=== PATIENT | male | born 1955 | race Caucasian/White ===

== ENCOUNTER 2017-06-15 15:38 | Emergency (ER) | payer BC ==
[2017-06-15] MEDS ORDERED: TETRACAINE HCL 150 DROP BTL ONE (15:48)
--- OUTSIDE RECORDS SUMMARY | 2017-06-15 15:54 | XMS REPORT | Clinical Summary ---
:1955 Author Organization [facility] [place] [address] Care Team Providers Name Role Phone Unavailable Primary Care Provider Unavailable Source Comments This disclosure is being made pursuant to the [employer] program and maynot contain all information available regarding this patient.[facility] Allergies Not on File Current Medications Be aware that medications may not be up to date as of this document. Alwaysverify current medications with the patient. Not on file Active Problems Not on file Social History Tobacco Use Types Packs/Day Years Used Date Never Assessed Sex Assigned at Date Recorded Not on file Last Filed Vital Signs Not on file Plan of Treatment Health Maintenance Due Date Last Done Comments Retired-Pertussis Vaccine Adult 1976 Retired-Tetanus Vaccine Adult 1974 Colonoscopy 2007 Well Adult Visit 2007 Retired-INFLUENZA VACCINE 07/04/2015 Results Not on filefrom Last 3 Months
--- NOTE | 2017-06-15 16:02 | ERNOTE ---
ENT HPI Date of Service: 06/15/17 Presenting Symptoms: eye pain Time Seen by Provider: 06/15/17 15:42 Source: patient Exam Limitations: no limitations - Immun/Allergies/Home Medications Immunizations: IMMUNIZATION HX Immunizations Up to Date Yes History of Influenza Vaccine No Hx Pneumococcal Vaccination No Allergies/Adverse Reactions: Allergies Allergy/AdvReac Type Severity Reaction Status Date / Time No Known Allergies Allergy Verified 06/15/17 15:45 Home Medications: HOME MEDICATIONS Aspirin [Aspirin EC] 81 mg PO DAILY 09/03/16 [Last Taken Unknown] Atorvastatin Calcium [Lipitor] 40 mg PO HS 09/03/16 [Last Taken Unknown] Metoprolol Succinate [Toprol Xl] 50 mg PO DAILY 09/03/16 [Last Taken Unknown] Nitroglycerin 0.4 mg SL DAILY PRN 09/03/16 [Last Taken Unknown] amLODIPine BESYLATE [Norvasc] 5 mg PO DAILY 09/03/16 [Last Taken Unknown] Tobramycin/Dexamethasone [Tobradex Eye Drops] 5 ml OP QID #2 drops.susp [Last Taken Unknown] traMADol HCL [Ultram] 50 mg PO QID #20 tablet 06/15/17 [Last Taken Unknown] - History of Present Illness Narrative: patient splashed chlorine from pool in left eye Severity: Present: moderate ENT Location: Present: eye (R) Prearrival Treatment: Present: flushing eys Modifying Factors - Improves: Reports: activity Modifying Factors - Worsens: Reports: activity Associated Symptoms - ENT: Reports: denies symptoms Review of Systems - Review of Systems Constitutional: Present: See HPI EYE: Present: eye pain, eye discharge ENT: Present: no symptoms reported Respiratory: Present: no symptoms reported Cardiology: Present: no symptoms reported Gastrointestinal/Abdominal: Present: no symptoms reported Genitourinary: Present: no symptoms reported Musculoskeletal: Present: no symptoms reported Skin: Present: no symptoms reported Neurological: Present: no symptoms reported Endocrine: Present: no symptoms reported Hematologic/Lymphatic: Present: no symptoms reported Psych: Present: no symptoms reported All Other Systems: All systems neg except as marked - Patient's Past Medical History Patient History - Medical: Chronic Pain, GERD, Osteoarthritis, Other Patient History - Cardiac/Respiratory: Hypertension, Hyperlipidemia Patient History - Cancer: No Hx of Cancer Patient History - Surgical Procedures: Back Surgery, Cholecystectomy, Cardiac stent, Other Patient History - Other: None - Family History Family History:: no untoward family reactions to anesthesia, no familial bleeding tendencies, no family history of premature - Social History Living Situations: spouse Abuse History: No History of abuse Psych History: No pertinent hx Does anyone smoke in the home?: No Smoking Status: Never smoker Have you smoked in the past 12 months: No Do you dip or chew tobacco: No Patient requests Smoking Cessation Consult: No Alcohol Use: none Drug Use: none - Immunizations Immunizations Up to Date: Yes Hx Pneumococcal Vaccination: No History of Influenza Vaccine: No Physical Exam - Physical Exam General Appearance: Present: alert, mild distress Head Exam: Present: normal inspection Eye Exam: Normal inspection: right - sclera injectedwithout drainage, PERRL: bilateral, EOMI: bilateral, Eyelid inflammation: right Ears, Nose, Throat: Present: normal ENT inspection Neck: Present: normal inspection, nontender Respiratory: Present: no respiratory distress, normal breath sounds, no accessory muscle use, chest nontender, lungs clear Cardiovascular/Chest: Present: regular rate, rhythm, no murmur, normal peripheral pulses Peripheral Pulses: N=norm/S=strong/W=weak/B=bound/A=absent: Carotid (R): Normal , Carotid (L): Normal, Radial (R): Normal, Radial (L): Normal, Femoral (R): Normal, Femoral (L): Normal, Dorsalis-pedis (R): Normal, Dorsalis-pedis (L): Normal Gastrointestinal/Abdominal: Present: normal bowel sounds, nontender, nondistended, soft Back Exam: Present: normal inspection, normal range of motion, no CVA tenderness , no vertebral tenderness Extremity Exam: Present: normal inspection, non-tender, normal range of motion, no edema Neurological Exam: Present: alert, oriented, normal mood/affect, no motor/ sensory deficits DTR: N=norm/NB=norm/brisk/A=abs/DD=dull/dimin/HC=hyperactive: Bicep (R): Normal , Bicep (L): Normal, Tricep (R): Normal, Tricep (L): Normal, Knee (R): Normal, Knee (L): Normal, Ankle (R): Normal, Ankle (L): Normal ED Progress - Vital Signs Vital Signs: Vital Signs 06/15/17 15:42 Temperature 36.6 C Pulse Rate 78 Respiratory 14 Rate Blood Pressure 137/92 O2 Sat by Pulse 95 Oximetry - Progress/Reassessment Chief Complaint: Eye Injury/Trauma Progress:: Pain free at discharge - Transfer of Care Expected Disposition: Discharge Departure Clinical Impression: Conjunctivitis, chemical - Departure Disposition: Home self-care Condition: Fair Instructions: Chemical Conjunctivitis, [id number] Referrals: Ramses Alcantara DO [Primary Care Provider] - Prescriptions: Tobramycin/Dexamethasone [Tobradex Eye Drops] 5 ml OP QID #2 drops.susp traMADol HCL [Ultram] 50 mg PO QID #20 tablet
[2017-06-15 16:05] VITALS: BP 136/84
== END 2017-06-15 16:12 | disposition home or self-care (01) ==
LOC: ER 15:38
DX: H10.211 Acute toxic conjunctivitis, right eye (principal); G89.29 Other chronic pain; K21.9 Gastro-esophageal reflux disease without esophagitis; M19.90 Unspecified osteoarthritis, unspecified site; I10 Essential (primary) hypertension; E78.5 Hyperlipidemia, unspecified